=== PATIENT | male | born 2000 | race Hispanic/Latino ===

== ENCOUNTER 2023-09-21 19:54 | Emergency (ER) | payer OTHER, SELFPAY ==
[2023-09-21 20:06] VITALS: BP 138/71; PULSE 101; RESP 16; TEMP 37; O2SAT 99
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
[2023-09-21] MEDS: AMOXICILLIN/CLAVULANATE K 875-125 MG TAB 1 TABLET PO (21:17)
[2023-09-21] MEDS: ACETAMINOPHEN 500 MG TABLET 1000 MG PO (21:19)
[2023-09-21] MEDS: OFLOXACIN 0.3% OPHTH SOLN 5 ML BTL 10 DROP LEFT EAR (21:43)
== END 2023-09-21 21:50 | disposition home or self-care (01) ==
PROVIDERS: Emergency Provider Student in an Organized Health Care Education/Training Program
DX: H60.502 Unspecified acute noninfective otitis externa, left ear (principal); H66.002 Acute suppurative otitis media without spontaneous rupture of ear drum, left ear; S09.22XD Traumatic rupture of left ear drum, subsequent encounter; W51.XXXD Accidental striking against or bumped into by another person, subsequent encounter
CPT/HCPCS: 99283; A9270

== ENCOUNTER 2023-10-08 02:53 | Observation (INO) | payer OTHER, SELFPAY ==
[2023-10-08] VITALS (30 sets, daily range): BP systolic 100–136; BP diastolic 42–77; PULSE 60–120; RESP 11–24; TEMP 35.6–38.3; O2SAT 98–100; BMI 16.7
--- NOTE | ~2023-10-08 | CT_ITS ---
CT of the Abdomen and Pelvis: Indication: Abdominal pain Technique: 2.5 mm axial scans were obtained through the abdomen and pelvis following intravenous adm inistration of 100 cc of Omnipaque 350. Dose reduction technique was used on this scan by utilizing a utomated exposure control and iterative reconstruction technique. The dose-length product (DLP) was 1 81.85 mGy-cm. Findings: Scans through the lung bases are unremarkable. The liver, spleen, pancreas, gallbladder, adrenals and kidneys are within normal limits. No evidence of aortic aneurysm. No lymphadenopathy. No bowel obstruction or bowel wall thickening. Appendix dilated to 10 mm, without significant periapp endiceal inflammatory change. Images through the pelvis were performed. Urinary bladder unremarkable. No pelvic mass seen. No ascit es. Impression: Dilated appendix without periappendiceal inflammatory change. Findings suggest early acute appendicit is. Correlate clinically. No abscess or free air. Reviewed, dictated and finalized at [facility]. [employer] Impression: Dilated appendix without periappendiceal inflammatory change. Findings suggest early acute appendicitis. Correlate clinically. No abscess or free air.
[2023-10-08 03:31] LABS: Basophils Absolute Auto 0.1 K/mm3 (0.0-0.1); Basophils Percent Auto 0.6 % (0.2-1.2); Eosinophils Absolute Auto 0.3 K/mm3 (0-0.3); Eosinophils Percent Auto 1.4 % (0-4.4); Hematocrit 49.2 % (42.0-52.0); Hemoglobin 16.2 g/dL (14.0-18.0); Immature Granulocyte Absolute 0.08 K/mm3 (0.00-0.031); Immature Granulocyte Percent A 0.5 % (0-0.5); Lymphocytes Absolute Auto 3.06 K/mm3 (0.9-3.2); Lymphocytes Percent Auto 17.6 % (18.3-44.2); Mean Corpuscular HGB Conc 32.9 g/dl (32-36); Mean Corpuscular Hemoglobin 30.2 pg (26-34); Mean Corpuscular Volume 91.8 fl (80-100); Mean Platelet Volume 9.7 fl (7.4-10.4); Monocytes Absolute Auto 1.2 K/mm3 (0.1-0.6); Monocytes Percent Auto 7.1 % (2.6-8.5); Neutrophils Absolute Auto 12.6 K/mm3 (1.3-6.7); Neutrophils Percent Auto 72.8 % (45.5-73.1); Platelet Count Result 353 k/mm3 (150-375); Red Blood Count 5.36 M/mm3 (4.6-6.20); Red Cell Distribution Width 11.7 % (11.5-14.5); White Blood Count 17.4 K/mm3 (4.5-10.0)
[2023-10-08 03:41] LABS: Alanine Aminotransferase 18 U/L (6-50); Albumin Level 4.9 g/dL (3.5-5.1); Alkaline Phosphatase 103 U/L (38-126); Anion Gap 11 mmol/L (8-16); Aspartate Amino Transferase 31 U/L (17-59); Bilirubin,Total 0.7 mg/dL (0.2-1.3); Blood Urea Nitrogen 15 mg/dL (9-20); Calcium 9.7 mg/dL (8.4-10.2); Carbon Dioxide 26 mmol/L (22-30); Chloride 101 mmol/L (98-107); Estimated CRCL calculation 102 ml/min; Estimated Glomerular Filt Rate > 60; Glucose 98 mg/dL (65-110); Lipase 96 U/L (23-300); Potassium 3.3 mmol/L (3.4-5.0); Sodium 138 mmol/L (137-145)
[2023-10-08 05:51] LABS: Appearance Urine Clear (Clear); Bilirubin Urine Negative (Negative); Blood Urine Negative (Negative); Color Urine Yellow (Yellow); Glucose Urine UA Negative (Negative); Ketones Urine Negative (Negative); Leukocyte Esterase Ur Negative LEU/UL (Negative); Nitrate Urine Negative (Negative); Protein Urine Negative (Negative); Specific Grav Ur 1.013 (1.001-1.035); Urobilinogen Urine 0.2 mg/dL (<2.0)
[2023-10-08 06:12] LABS: Add Urine Microscopic? NO
--- NOTE | 2023-10-08 07:26 | PC.NURSE ---
Assumed care of pt. Pt resting with eyes closed on stretcher. Family member confrontational with staff, demands a time the doctor would be seeing pt. Informed pt & family that pts are seen by severity. The doctor will be in as soon as possible.
[2023-10-08] MEDS: SODIUM CHLORIDE 0.9% IV 1,000 ML 150 ML IV CONT (07:55)
[2023-10-08] MEDS: ONDANSETRON INJ 4 MG/2 ML VIAL IV PUSH (07:55)
[2023-10-08] MEDS: MORPHINE SULFATE (*CRX) 4 MG/ML INJ 2 MG IV PUSH (07:55)
--- NOTE | 2023-10-08 08:23 | PC.NURSE ---
Pharmacy notified Pyxis out of Piperacillin pt has order for dose.
[2023-10-08] MEDS: PIPERACILLN/TAZ 3.375GM/NS50ML 3.375 GM/50 ML BAG IVPB ×3 (08:31→20:20)
--- NOTE | 2023-10-08 08:43 | ED.ABDPAIN ---
HPI - Abdominal Pain General Chief Complaint: Abdominal Pain Stated Complaint: abdominal pain Time Seen by Provider: 10/08/23 06:56 Source: patient Mode of arrival: ambulatory Limitations: no limitations History of Present Illness HPI narrative: 23-year-old otherwise healthy here with complaints of right lower abdominal pain which started about 7:00 p.m. last night complains of mild nausea. No history of fever or chills. MD elicited complaint: abdominal pain Pertinent past history: none Onset (ago): hour(s) (10) Pain Consistency: constant Location: RLQ Severity: moderate Pain scale (0-10): 8 Radiation: RLQ Migration to: no migration Exacerbating factors: nothing Relieving factors: nothing Associated symptoms: nausea Related Data Allergies Allergy/AdvReac Type Severity Reaction Status Date / Time No Known Allergies Allergy Verified 10/08/23 02:59 Review of Systems Review of Systems: All systems reviewed & are unremarkable except as noted in HPI and below Constitutional: Constitutional: Reports no additional constitutional complaints Eyes: Eyes: Reports no additional eye complaints ENT: Reports system reviewed and no additional complaints, except as documented Cardiovascular: Cardiovascular: Reports no additional cardiovascular complaints Respiratory: Respiratory: Reports no additional respiratory complaints Gastrointestinal: Gastrointestinal: Reports as per HPI Musculoskeletal: Musculoskeletal: Reports no additional musculoskeletal complaints Neurologic: Reports system reviewed and no additional complaints, except as documented Psychiatric: Psychiatric: Reports no additional psychiatric complaints Exam Narrative: GENERAL: Well-appearing, well-nourished, and in no acute distress. HEAD: Normocephalic, atraumatic. EYES: PERRLA and EOMI. ENT: Nares clear, no rhinorrhea or epistaxis. NECK: Supple. CHEST: Clear to auscultation. No respiratory distress. HEART: Regular rate and rhythm. No murmur heard. Normal peripheral pulses. ABDOMEN: Soft, tender in the RLQ, nondistended, normal active bowel sounds. EXTREMITIES: Normal range of motion. No edema. SKIN: Warm, dry, no rash. NEURO: No focal deficits. Alert and oriented x3. PSYCH: Normal mood and affect. Course Course Emergency Course: Pain has much improved after morphine. I did inform him about his lab work and CT findings. Discussed with Dr. Contreras will admit Vital Signs Vital signs: Vital Signs Temperature 36.4 C 10/08/23 02:55 Pulse Rate 84 10/08/23 02:55 Respiratory Rate 20 02/20/24 02:55 Blood Pressure 115/77 10/08/23 02:55 Pulse Oximetry 100 10/08/23 02:55 Oxygen Delivery Room Air 10/08/23 02:55 Temperature 36.9 C 10/08/23 08:33 Pulse Rate 90 10/08/23 08:33 Respiratory Rate 16 10/08/23 08:33 Blood Pressure 131/68 10/08/23 08:33 Pulse Oximetry 100 10/08/23 08:33 Oxygen Delivery Room Air 10/08/23 02:55 MDM - Abdominal Pain Differential Diagnosis Differential diagnosis: Likely abdominal pain, acute appendicitis, gastroenteritis and small bowel obstruction Medical Records Attestation: I reviewed the patient's medical records. Lab Data 10/08/23 03:14 10/08/23 03:14 Labs: Lab Results 10/08/23 10/08/23 Range/Units 03:14 05:41 WBC 17.4 H (4.5-10.0) K/mm3 RBC 5.36 (4.6-6.20) M/mm3 Hgb 16.2 (14.0-18.0) g/dL Hct 49.2 (42.0-52.0) % MCV 91.8 (80-100) fl MCH 30.2 (26-34) pg MCHC 32.9 (32-36) g/dl RDW 11.7 (11.5-14.5) % Plt Count 353 (150-375) k/mm3 MPV 9.7 (7.4-10.4) fl Immature Gran % (Auto) 0.5 (0-0.5) % Neut % (Auto) 72.8 (45.5-73.1) % Lymph % (Auto) 17.6 L (18.3-44.2) % [place] % (Auto) 7.1 (2.6-8.5) % Eos % (Auto) 1.4 (0-4.4) % Baso % (Auto) 0.6 (0.2-1.2) % Lymph # (Auto) 3.06 (0.9-3.2) K/mm3 [place] # (Auto) 1.2 H (0.1-0.6) K/mm3 Eos # (Auto) 0.3 (0-0.3) K/mm3 Baso # (Auto) 0
[2023-10-08] MEDS: MORPHINE SULFATE (*CRX) 4 MG/ML INJ IV PUSH (09:56)
--- NOTE | 2023-10-08 10:53 | ADMGEN ---
This patient, Shawn Jorgensen, was admitted to 3 [facility] Surg Room 301-01. Report received from WILFRED Whaley. Patient/family oriented to hospital policies and general routines including ID bracelet, bed and alarms, visiting hours, pain management, procedures, bathroom and other care routines, personal items, smoking policy, room service/diet, and visiting hours. Information on how to activate the Rapid Response Team has been discussed. Patient/Family are encouraged to report perceived risks to care and to ask questions if they do not understand what they are told or what they should do.
[2023-10-08] MEDS: PROMETHAZINE HCL 25 MG/ML AMPUL 12.5 MG IV PUSH (11:07)
[2023-10-08] MEDS: SODIUM CHLORIDE 0.9% IV 1,000 ML 125 ML IV CONT (11:10)
--- NOTE | 2023-10-08 12:36 | PM.IMHP ---
H&P: HPI History of Present Illness Date/Time: 10/08/23 12:36 Chief Complaint: Right lower quadrant pain Narrative: This is a 23-year-old male who presented to the emergency department with right lower quadrant pain that began yesterday. Pain worsened throughout the evening and he was experiencing nausea and vomiting. He denied fevers and chills. He has never had symptoms like this before. In the emergency department he was noted to have an elevated white blood count and CT showed evidence of acute appendicitis. He was started on broad-spectrum IV antibiotics and admitted for further treatment. He is still experiencing pain and nausea since being admitted. Review of Systems Review of Systems: All systems reviewed & are unremarkable except as noted in HPI and below Eyes: Eyes: Denies change in vision ENT: Denies hearing loss, Denies neck pain and Denies sore throat Cardiovascular: Cardiovascular: Denies chest pain and Denies dyspnea Respiratory: Respiratory: Denies cough, Denies dyspnea and Denies wheezing Gastrointestinal: Gastrointestinal: Reports as per HPI Genitourinary: Genitourinary: Denies hematuria and Denies dysuria Musculoskeletal: Musculoskeletal: Denies arthralgias, Denies joint swelling and Denies neck pain Allergic/Immunologic: Allergic/Immunologic: Denies wheezing PMFSH Past Medical History Medical History (Updated 10/08/23 @ 12:38 by Anthony Marquez DO) No pertinent past medical history Surgical History Surgical History (Updated 10/08/23 @ 12:38 by Anthony Marquez DO) No pertinent past surgical history Family History Family History Father No problems noted. Mother No problems noted. Social History Social History Smoking status: Never smoker Alcohol intake: never Substance use type: does not use Do You Feel Safe in your Home?: Yes Lack of Transportation: No Lack of Food: Never True Current Housing: I Have Housing Concerned About Future Housing: No Difficulty Paying Gas/Electric Bills: No Difficulty Paying for Meds: No Currently Unemployed: No Education: Associate Degree Difficulty w/ Childcare or Family Care: No Spiritual care concerns: No Meds Home Medications and Allergies Home Medications Medication Instructions Recorded Confirmed Type No Home Medications 10/08/23 10/08/23 History Allergies Allergy/AdvReac Type Severity Reaction Status Date / Time No Known Allergies Allergy Verified 10/08/23 02:59 Vital Signs Vital Signs - 24 hr 10/08/23 02:55 10/08/23 04:45 10/08/23 05:17 Temperature 36.4 C Pulse Rate 84 69 60 Respiratory Rate 20 16 16 Blood Pressure 115/77 108/69 100/74 Pulse Oximetry 100 100 100 Oxygen Delivery Room Air 10/08/23 06:30 10/08/23 07:01 10/08/23 08:33 Temperature 36.6 C 36.9 C Pulse Rate 66 106 H 90 Respiratory Rate 12 24 H 16 Blood Pressure 113/69 117/75 131/68 Pulse Oximetry 99 100 100 Oxygen Delivery 10/08/23 07:42 10/08/23 07:45 10/08/23 07:58 Temperature Pulse Rate 99 92 85 Respiratory Rate 17 13 17 Blood Pressure 121/64 Pulse Oximetry 100 100 100 Oxygen Delivery 10/08/23 08:00 10/08/23 08:01 10/08/23 08:15 Temperature Pulse Rate 86 95 113 H Respiratory Rate 14 20 18 Blood Pressure 121/68 Pulse Oximetry 100 100 100 Oxygen Delivery 10/08/23 08:40 10/08/23 09:12 10/08/23 09:15 Temperature Pulse Rate 107 H 103 H 76 Respiratory Rate 18 20 14 Blood Pressure Pulse Oximetry 100 100 100 Oxygen Delivery 10/08/23 09:30 10/08/23 09:31 10/08/23 10:26 Temperature 36.7 C Pulse Rate 89 92 97 Respiratory Rate 16 21 H 16 Blood Pressure 109/61 106/67 Pulse Oximetry 99 100 99 Oxygen Delivery Exam Const: General: alert; No acute distress Orientation/consciousness: patient oriented x3 Limitations: no l
--- NOTE | 2023-10-08 12:41 | WPDHPUPDATE1 ---
History and Physical Update Update Date/Time: 10/08/23 12:41 History and Physical has been reviewed, including an updated exam of the patient. There are NO changes in the patient's condition. Risks, benefits, and alternatives have been discussed and questions answered. Patient agrees to proceed with procedure.
--- NOTE | 2023-10-08 15:04 | PC.NURSE ---
To OR per stretcher at 1500, IV saline locked. Report given to WILFRED Olmos.
[2023-10-08] MEDS: LACTATED RINGERS 1,000 ML 30 ML IV CONT ×2 (15:40→17:46)
--- NOTE | 2023-10-08 15:59 | WPDANESEPPF ---
Anes - Initial Pre Proc Eval Procedure: Operation Date: 10/08/23 16:00 Proposed Procedures p Laparoscopic Appendectomy - Anthony Marquez DO Date/Time: 10/08/23 15:59 Surgeon: Anthony Marquez DO Pre Op Diagnosis: acute appendicitis Patient Data Age: 23 Gender: M Height: 1.73 m Weight: 50 kg Last Vital Signs Temp 38.3 C H 10/08/23 15:36 Pulse 111 H 10/08/23 15:36 Resp 16 10/08/23 15:36 BP 120/56 L 10/08/23 15:36 Pulse Ox 100 10/08/23 15:36 O2 Del Method Room Air 10/08/23 15:36 Allergies Allergy/AdvReac Type Severity Reaction Status Date / Time No Known Allergies Allergy Verified 10/08/23 15:14 Home Medications Medication Instructions Recorded Confirmed Type No Home Medications 10/08/23 10/08/23 History Laboratory Tests 10/08/23 10/08/23 03:14 05:41 WBC 17.4 H K/mm3 (4.5-10.0) RBC 5.36 M/mm3 (4.6-6.20) Hgb 16.2 g/dL (14.0-18.0) Hct 49.2 % (42.0-52.0) MCV 91.8 fl (80-100) MCH 30.2 pg (26-34) MCHC 32.9 g/dl (32-36) RDW 11.7 % (11.5-14.5) Plt Count 353 k/mm3 (150-375) MPV 9.7 fl (7.4-10.4) Immature Gran % (Auto) 0.5 % (0-0.5) Neut % (Auto) 72.8 % (45.5-73.1) Lymph % (Auto) 17.6 L % (18.3-44.2) [place] % (Auto) 7.1 % (2.6-8.5) Eos % (Auto) 1.4 % (0-4.4) Baso % (Auto) 0.6 % (0.2-1.2) Lymph # (Auto) 3.06 K/mm3 (0.9-3.2) [place] # (Auto) 1.2 H K/mm3 (0.1-0.6) Eos # (Auto) 0.3 K/mm3 (0-0.3) Baso # (Auto) 0.1 K/mm3 (0.0-0.1) Abs Immat Gran (auto) 0.08 H K/mm3 (0.00-0.031) Absolute Neuts (auto) 12.6 H K/mm3 (1.3-6.7) Absolute Nucleated RBC 0.0 K/mm3 (0.0-0.012) Nucleated RBC % 0.0 % (0.0-0.2) Sodium 138 mmol/L (137-145) Potassium 3.3 L mmol/L (3.4-5.0) Chloride 101 mmol/L (98-107) Carbon Dioxide 26 mmol/L (22-30) Anion Gap 11 mmol/L (8-16) BUN 15 mg/dL (9-20) Creatinine 0.70 mg/dL (0.7-1.3) Estim Creat Clear Calc 102 ml/min Estimated GFR > 60 (59 - ) Glucose 98 mg/dL (65-110) Calcium 9.7 mg/dL (8.4-10.2) Total Bilirubin 0.7 mg/dL (0.2-1.3) AST 31 U/L (17-59) ALT 18 U/L (6-50) Alkaline Phosphatase 103 U/L (38-126) Total Protein 8.0 g/dL (6.3-8.2) Albumin 4.9 g/dL (3.5-5.1) Lipase 96 U/L (23-300) Urine Color Yellow (Yellow) Urine Appearance Clear (Clear) Urine pH 7.0 (5.0-9.0) Ur Specific [place] 1.013 (1.001-1.035) Urine Protein Negative mg/dL (Negative) Urine Glucose (UA) Negative mg/dL (Negative) Urine Ketones Negative mg/dL (Negative) Ur Blood (Man) Negative (Negative) Urine Nitrate Negative (Negative) Urine Bilirubin Negative (Negative) Urine Urobilinogen 0.2 mg/dL (<2.0) Leukocyte Esterase Rfl Negative PRATIBHA/UL (Negative) Patient hx anesthesia problems: none Family hx anesthesia problems: none Results Review: All pre-operative results and documents have been reviewed as part of the pre-operative evaluation. [facility] Past Medical History Medical History No pertinent past medical history Surgical History Surgical History No pertinent past surgical history Family History Family History Father No problems noted. Mother No problems noted. Social History Social History Smoking status: Never smoker Alcohol intake: never Substance use type: does not use Do You Feel Safe in your Home?: Yes Lack of Transportation: No Lack of Food: N
[2023-10-08] MEDS: BUPIVACAINE/EPINEPHRINE 0.5% 30 ML VIAL INFILTRATE (16:36)
--- NOTE | 2023-10-08 16:56 | W.PM.PROC2 ---
Procedure Note - Detailed Date of Procedure 10/08/23 Pre-op Diagnosis acute appendicitis Post-op Diagnosis Same Procedure Performed Laparoscopic appendectomy Surgeon Anthony Marquez, DO Anesthesia General and Local (0.5% bupivacaine with epinephrine) Indications This is a 23-year-old man who presented to the emergency department with right lower quadrant pain that started yesterday. He was noted to have an elevated white blood count and CT showed evidence of acute appendicitis. He was started on IV Zosyn and admitted for further treatment. Discussions were made with the patient about treatment options and decision was made to proceed with laparoscopic appendectomy, possible open. Findings Laparoscopic appendectomy was performed. The appendix appeared dilated and indurated, but there was no evidence of perforation abscess. The base of the appendix appeared healthy and viable. The appendix was removed and sent to the lab for pathology. Description of Procedure Procedure as well as risks, benefits, and alternatives were explained to the patient. The patient agreed to proceed. Written consent was obtained and placed in chart prior to procedure. The patient was brought back to surgical suite. He was placed supine on operating table. Time-out was done to confirm the patient and procedure. The patient was then intubated by the Anesthesia Department. His abdomen was prepped and draped in sterile fashion using chlorhexidine prep. A 12 mm incision was made at the inferior portion of the umbilicus. Blunt dissection was carried out down to the linea alba. The linea alba was then incised using a 15 blade scalpel. Then bluntly entered into the peritoneal cavity. A 12 mm trocar was then inserted, and carbon dioxide insufflation was used to create a pneumoperitoneum. The camera was inserted and the abdomen was inspected. No immediate abnormalities were identified. The patient was then placed in slight Trendelenburg position and rotated to the left. A 5 mm incision was made in the suprapubic region in midline and a 5 mm trocar was inserted under direct visualization. A 5 mm incision was made in the left lower quadrant and a 5 mm trocar was inserted under direct visualization. The right lower quadrant was carefully inspected. The cecum was identified and then this was traced back to the appendix. The appendix was identified and grasped at the mesoappendix and lifted anteriorly. Careful blunt dissection was carried out at the base of the appendix through the mesoappendix using a [place] grasper. An Endo-HAN 45 mm blue load stapler was then advanced across the base of the appendix and clamped and fired. A white reload was then clamped across the mesoappendix and fired. This freed up our appendix completely. It was then placed in an EndoCatch bag and removed through the umbilical port. The staple lines were then inspected. Hemostasis appeared adequate and the staple lines appeared secure. The area was then irrigated with sterile saline. The pelvis was then carefully inspected and irrigated with sterile saline as well and the remainder of the abdomen was carefully inspected. The patient was then flattened out in bed. One final inspection was made around the abdominal cavity and no other abnormalities were seen. The ports were then removed under direct visualization. The camera was removed and the pneumoperitoneum was released. The fascia of the umbilical incision was reapproximated using an 0 Vicryl [id number] suture. 0.5% bupivacaine with epinephrine was infiltrated locally around each of the incisions. The skin of the incisions was then approximated using 4-0 Monocryl subcuticular suture and Exofin glue was applied on top. The patient was then awakened from anesthesia, extubated, and transferred to Recovery. Estimated Blood Loss 5 Pathology Yes (Appendix) Complications No immediate complications Condition Stable Disposition Floor [facility]
--- NOTE | 2023-10-08 18:36 | PC.NURSE ---
Returned from OR per stretcher. Report received from WILFRED Tang.
--- NOTE | 2023-10-08 20:00 | PM.DS ---
DS: Admitting Diagnosis Discharge Date 10/08/23 Admitting Diagnosis Acute appendicitis DS: Discharge Diagnosis Discharge Diagnosis (1) Acute appendicitis: Qualifiers: Acute appendicitis type: with localized peritonitis Appendicitis abscess presence: without abscess Appendicitis gangrene presence: without gangrene Appendicitis perforation presence: without perforation Qualified Code(s): K35.30 - Acute appendicitis with localized peritonitis, without perforation or gangrene Code(s): K35.80 - Unspecified acute appendicitis Status: Acute DS: Summary Hospital Course Reason for hospitalization: Acute appendicitis Hospital Course: This is a 23-year-old man who presented to the emergency department on 10/08/2023 with right lower quadrant pain. He had an elevated white blood count and CT showed evidence of acute appendicitis. He was started on broad-spectrum IV antibiotics and placed in the hospital under observation. Discussions were made with the patient about treatment options and he underwent laparoscopic appendectomy on 10/08. Surgery was uncomplicated and he was returned to the surgical floor postoperatively. His diet and activity were advanced as tolerated. He was discharged home once tolerating a regular diet, pain was controlled, vitals remained stable, and he was ambulating in the halls. Status at Discharge Functional status at discharge: independent ambulation Overall status at discharge: patient is progressing back to baseline Time Spent with Patient Time attestation: Total time spent providing and/or coordinating discharge services: Time spent: Less than 30 minutes Exam Const: General: comfortable and no acute distress GI: Inspection: incision (Intact with glue) DS: Data Data Completed and Pending Completed studies during hospitalization: Pending at discharge 10/08/23 16:33 Surgical [PTH] Routine Imaging Radiologist's impression: ITS Impressions Abdomen/Pelvis CT 10/08/23 07:43 Impression: Dilated appendix without periappendiceal inflammatory change. Findings suggest early acute appendicitis. Correlate clinically. No abscess or free air. Discharge Plan Discharge Attending physician on discharge: Anthony Wheeler Consulting providers: Jasson Palomares; Donovan Meeks Discharging Clinician: Anthony Wheeler Anticipated Discharge Date/Time: 10/08/23 20:00 Patient Disposition: Home, Self-Care Activity: other - see discharge instructions Diet: regular Wound Care Instructions: other - see discharge instructions Discharge Instructions: DISCHARGE INSTRUCTION SHEET FOR HERNIA, GALLBLADDER AND APPENDIX SURGERIES DR. WHEELER PATIENT TO TAKE HOME 1. May shower in 24 hours, no soaking in bath x 2weeks. 2. Call office for: Wound increasingly painful or bleeding Vomiting Fever of greater than 101 degrees 3. If no bowel movement for three days, take 1 oz. (30 ml) Milk of Magnesia or MiraLax 17g 1 to 2 times daily. 4. No heavy lifting > 10-15 pounds x 2 weeks for laparoscopic cholecystectomy or appendectomy. 5. No driving for 3 days or while taking narcotic pain medications. 6. Ice to surgical site for 48 hours (30 min on, then 30 min off). 7. Up walking 10-30 minutes three times per day. 8. Resume previous home medications. 9. Follow-up 10-14 days in office for wound check or as previously scheduled. ([phone]) 10. Oral pain medications prescription to be sent to pharmacy. Take Tylenol 500mg every 6 hours and Ibuprofen 600mg every 6 hours for the first 2 days, then as needed. 11. NUTRITION: Start out by drinking fluids and increase your diet as tolerated. If you experience nausea, try dry toast, crackers, and 7-UP. If nausea or vomiting persists, contact your surgeon?s office. 12. Gallbladders-Low Fat Diet for 2 weeks (send care note of low fat diet)
--- NOTE | 2023-10-09 14:41 | WPDANESPN ---
Anes - Prog Note Post-Op Date/Time: 10/09/23 14:41 Cardiovascular status: normal Respiratory status: normal Airway patency: baseline Mental status: baseline Post-Op hydration status: normal Vital Signs: Last Vital Signs Temp 99.1 F 10/08/23 19:36 Pulse 91 10/08/23 19:36 Resp 18 10/08/23 19:36 BP 129/66 10/08/23 19:36 Pulse Ox 98 10/08/23 19:36 O2 Del Method Room Air 10/08/23 18:25 O2 Flow Rate 10 10/08/23 17:10 Pain Score (VAS): 0/10 I/O: Intake & Output 10/08/23 10/09/23 10/09/23 23:59 07:59 15:59 Intake Total 300 Balance 300 Laboratory Tests 10/08/23 03:14 10/08/23 03:14 Post-procedural complaints: none Patient Feedback: Patient satisfied with anesthetic care.
== END 2023-10-08 21:30 | disposition home or self-care (01) ==
LOC: ANHED 09:12 → ANH3MEDSUR 09:28
PROVIDERS: Emergency Medicine; Admitting Provider Surgery; Emergency Provider Family Medicine; Visit Provider Surgery
PROC: 0DTJ4ZZ Resection of Appendix, Percutaneous Endoscopic Approach (ICD-10-PCS; CPT 44970; principal; 2023-10-08 16:00)
DX: K35.32 Acute appendicitis with perforation, localized peritonitis, and gangrene, without abscess (principal)
CPT/HCPCS: 44970; 36415; 74177; 80053; 81003; 83690; 85025; 88304; 96361; 96365; 96375; 96376; 99285; G0378; J1100; J1170; J2250; J2270; J2405; J2543; J2550; J2704; J3010; J7030; J7120; Q9967

== ENCOUNTER 2025-07-06 11:32 | Emergency (ER) | payer OTHER, SELFPAY ==
[2025-07-06 11:34] VITALS: BP 128/87; PULSE 95; RESP 18; TEMP 36.8; O2SAT 100
[2025-07-06 14:00] VITALS: BP 118/76; PULSE 81; RESP 16; O2SAT 100
[2025-07-06 14:30] LABS: Hematocrit 49.8 % (42.0-52.0); Hemoglobin 16.3 g/dL (14.0-18.0); Immature Granulocyte Percent A 0.4 % (0-0.5); Lymphocytes Absolute Auto 1.82 K/mm3 (0.9-3.2); Mean Corpuscular HGB Conc 32.7 g/dl (32-36); Mean Corpuscular Hemoglobin 29.7 pg (26-34); Mean Corpuscular Volume 90.9 fl (80-100); Nucleated Red Blood Cells Absolute Auto 0.000 K/mm3 (0.0-0.012); Nucleated Red Blood Cells Perc 0.0 % (0.0-0.2); Platelet Count Result 328 k/mm3 (150-375); Red Blood Count 5.48 M/mm3 (4.6-6.20); White Blood Count 6.9 K/mm3 (4.5-10.0)
[2025-07-06 14:36] LABS: Add Urine Microscopic? YES; Appearance Urine Clear (Clear); Glucose Urine UA Negative (Negative); Leukocyte Esterase Ur Negative LEU/UL (Negative); Nitrate Urine Negative (Negative); Non Pathogenic Casts 0-2; Specific Grav Ur 1.020 (1.001-1.035)
[2025-07-06 15:02] LABS: Alanine Aminotransferase 18 U/L (6-50); Albumin Level 5.1 g/dL (3.5-5.1); Alkaline Phosphatase 119 U/L (38-126); Anion Gap 14 mmol/L (4-12); Aspartate Amino Transferase 32 U/L (17-59); Bilirubin,Total 1.1 mg/dL (0.2-1.3); Blood Urea Nitrogen 10 mg/dL (9-20); Calcium 9.5 mg/dL (8.4-10.2); Carbon Dioxide 21 mmol/L (22-30); Chloride 103 mmol/L (98-107); Estimated CRCL calculation 94 ml/min; Estimated Glomerular Filt Rate > 60; Glucose 88 mg/dL (65-110); Lipase 82 U/L (23-300); Potassium 4.0 mmol/L (3.4-5.0); Sodium 138 mmol/L (137-145); Total Protein 9.0 g/dL (6.3-8.2)
--- NOTE | 2025-07-06 15:04 | ED.NAVMDI ---
HPI - Nausea/Vomiting/Diarrhea General Chief complaint: Nausea/Vomiting/Diarrhea Stated complaint: vomiting every morning for years Time Seen by Provider: 07/06/25 14:07 History of Present Illness HPI Narrative: This is a 25-year-old male with no significant past medical history who presents to the ED for nausea, vomiting. Patient states that for the past year, he has been having persistent nausea vomiting any time he eats. He states this gotten worse in the last month. He states that he is intermittently able to tolerate liquids. He has appendix taken years here in. No new medications. He has been losing weight. Related Data Allergies Allergy/AdvReac Type Severity Reaction Status Date / Time No Known Allergies Allergy Verified 07/06/25 14:00 Review of Systems Review of Systems: Gen.: Denies fevers or chills Eyes: Denies eye pain or visual change ENT: Denies congestion Respiratory: Denies shortness of breath or cough CV: Denies chest pain or palpitations GI: As per HPI denies burning, urgency, frequency or hematuria Musculoskeletal: Denies back pain or muscle pain Neuro: Denies numbness, tingling, weakness or focal weakness Skin: Denies rash Except as documented, all other systems reviewed and negative PMFSH Past Medical History Medical History No pertinent past medical history Surgical History Surgical History No pertinent past surgical history Family History Family History Father No problems noted. Mother No problems noted. Social History Social History Smoking status: Never smoker Alcohol intake: never Substance use type: does not use Do You Feel Safe in your Home?: Yes Lack of Transportation: No Lack of Food: Never True Current Housing: I Have Housing Concerned About Future Housing: No Difficulty Paying Gas/Electric Bills: No Difficulty Paying for Meds: No Currently Unemployed: No Education: Associate Degree Difficulty w/ Childcare or Family Care: No Spiritual care concerns: No Exam Narrative: APPEARANCE: No acute distress, nontoxic, resting in bed EYES: EOMI HEENT: Normocephalic, atraumatic, OMM RESPIRATORY: No respiratory distress Clear to auscultation bilaterally with no rhonchi wheezing or rales. CARDIOVASCULAR: Regular rate and rhythm without murmurs rubs or gallops. ABDOMINAL: Soft, nontender, nondistended, no rebound or guarding MUSCULOSKELETAl: Moves all extremities. No clubbing, cyanosis or edema. NEURO: Awake and alert. Following commands, speech normal, no focal deficits SKIN:: Warm, dry. No rashes lesions or abrasions PSYCHIATRIC: Normal affect/mood, Course Vital Signs Vital signs: Vital Signs Temperature 98.2 F 07/06/25 11:34 Pulse Rate 95 07/06/25 11:34 Respiratory Rate 18 07/06/25 11:34 Blood Pressure 128/87 07/06/25 11:34 Pulse Oximetry 100 07/06/25 11:34 Oxygen Delivery Room Air 07/06/25 11:34 Temperature 98.2 F 07/06/25 11:34 Pulse Rate 81 07/06/25 14:00 Respiratory Rate 16 07/06/25 14:00 Blood Pressure 118/76 07/06/25 14:00 Pulse Oximetry 100 07/06/25 14:00 Oxygen Delivery Room Air 07/06/25 11:34 MDM - Nausea/Vomiting/Diarrhea MDM Narrative Medical decision making narrative: 25-year-old male Presenting for nausea, vomiting for a year. On initial evaluation patient was in no acute distress afebrile, hemodynamic stable. Differentials include but are not limited to: Gastritis gastroenteritis, eosinophilic esophagitis, Schatzki's ring, PUD Notable exam findings: Heart and lungs clear, no abdominal tenderness I personally reviewed the patient's lab result. Notable lab findings: CBC without significant abnormalities. CMP likely consistent with mild dehydration. I suspect that the patient may have an esophageal abnormality causing his symptoms. He will require further GI evaluation. He was given a referral to Dr. Buchanan GI. He is stable to tolerate solids but is lactose intolerant so he was educated on lactose-free protein shakes to drink until he can be further evaluated by GI. He will be given prescriptions for Zofran. Patient and family were agreeable to this plan. Given strict return precautions. Lab Data Attestation: I reviewed the patient's lab results. 07/06/25 14:21 07/06/25 14:21 Labs: Lab Results 11/18/25 Range/Units 14:21 WBC 6.9 (4.5-10.0) K/mm3 RBC 5.48 (4.6-6.20) M/mm3 Hgb 16.3 (14.0-18.0) g/dL Hct 49.8 (42.0-52.0) % MCV 90.9 (80-100) fl MCH 29.7 (26-34) pg MCHC 32.7 (32-36) g/dl RDW 11.5 (11.5-14.5) % Plt Count 328 (150-375) k/mm3 MPV 9.3 (7.4-10.4) fl Immature Gran % (Auto) 0.4 (0-0.5) % Neut % (Auto) 58.0 (45.5-73.1) % Lymph % (Auto) 26.6 (18.3-44.2) % [place] % (Auto) 12.3 H (2.6-8.5) % Eos % (Auto) 1.8 (0-4.4) % Baso % (Auto) 0.9 (0.2-1.2) % Lymph # (Auto) 1.82 (0.9-3.2) K/mm3 [place] # (Auto) 0.8 H (0.1-0.6) K/mm3 Eos # (Auto) 0.1 (0-0.3) K/mm3 Baso # (Auto) 0.1 (0.0-0.1) K/mm3 Abs Immat Gran (auto) 0.03 (0.00-0.031) K/mm3 Absolute Neuts (auto) 4.0 (1.3-6.7) K/mm3 Absolute Nucleated RBC 0.000 (0.0-0.012) K/mm3 Nucleated RBC % 0.0 (0.0-0.2) % Sodium 138 (137-145) mmol/L Potassium 4.0 (3.4-5.0) mmol/L Chloride 103 (98-107) mmol/L Carbon Dioxide 21 L (22-30) mmol/L Anion Gap 14 H (4-12) mmol/L BUN 10 D (9-20) mg/dL Creatinine 0.77 (0.7-1.3) mg/dL Estim Creat Clear Calc 94 ml/min Estimated GFR > 60 (59 - ) Glucose 88 (65-110) mg/dL Calcium 9.5 (8.4-10.2) mg/dL Total Bilirubin 1.1 (0.2-1.3) mg/dL AST 32 (17-59) U/L ALT 18 (6-50) U/L Alkaline Phosphatase 119 (38-126) U/L Total Protein 9.0 H (6.3-8.2) g/dL Albumin 5.1 (3.5-5.1) g/dL Lipase 82 (23-300) U/L Urine Color Yellow (Yellow) Urine Appearance Clear (Clear) Urine pH 5.5 (5.0-9.0) Ur Specific [place] 1.020 (1.001-1.035) Urine Protein Negative (Negative) mg/dL Urine Glucose (UA) Negative (Negative) mg/dL Urine Ketones Negative (Negative) mg/dL Ur Blood (Man) 1+ H (Negative) Urine Nitrate Negative (Negative) Urine Bilirubin Negative (Negative) Urine Urobilinogen 0.2 (<2.0) mg/dL Leukocyte Esterase Rfl Negative (Negative) PRATIBHA/UL Urine RBC 6-10 H (0-2) /hpf Urine WBC 0-5 (0-3) /hpf Ur Squamous Epith Cells None seen (Few) /hpf Urine Bacteria None seen /hpf Urine Casts 0-2 Discharge Plan Discharge Clinical Impression: Nausea & vomiting Qualifiers: Vomiting type: unspecified Qualified Code(s): R11.2 - Nausea with vomiting, unspecified Patient Disposition: Home Condition: Stable Instructions: Antibiotic Form, Acute Nausea and Vomiting (ED) Additional Instructions: You will need further evaluation by GI regarding your nausea and vomiting as there may be a stricture in your esophagus. You should drink protein shakes in the meantime, try fairlife as this is lactose free. Return the ED for any new or worsening symptoms right Patient Language: Portuguese Prescriptions: New ondansetron 4 mg tablet,disintegrating 4 mg PO Q8H PRN (Reason: nausea and vomiting) Qty: 14 0RF No Action amoxicillin-pot clavulanate 875-125 mg tablet 1 tablet PO Q12H 7 Days Qty: 14 0RF ofloxacin 0.3 % drops 10 drp LEFT EAR DAILY 10 Days Qty: 10 0RF hydrocodone-acetaminophen 5-325 mg tablet 1 tablet PO Q4H PRN (Reason: pain) Qty: 10 0RF Follow-up/Referrals: Neno Ann MD [Physician, Family Practice] Omer Buchanan MD [Physician, Gastroenterology] UNKNOWN,DOCTOR [Primary Care Provider]
[2025-07-06] MEDS: SODIUM CHLORIDE 0.9% IV 1,000 ML 999 ML IV CONT (15:19)
[2025-07-06] MEDS: ONDANSETRON INJ 4 MG/2 ML VIAL IV PUSH (15:19)
== END 2025-07-06 16:26 | disposition home or self-care (01) ==
PROVIDERS: Emergency Provider Student in an Organized Health Care Education/Training Program
DX: R11.2 Nausea with vomiting, unspecified (principal)
CPT/HCPCS: 36415; 80053; 81001; 83690; 85025; 96361; 96374; 99284; J2405; J7030